=== PATIENT | female | born 1965 | race Caucasian/White ===

== ENCOUNTER 2023-05-28 07:00 | Outpatient (RCR) | payer OTHER, SELFPAY | END 2023-07-14 15:35 | disposition home or self-care (01) | LOC: PT 07:00 | PROVIDERS: Visit Provider Orthopaedic Surgery Adult Reconstructive Orthopaedic Surgery | DX: M70.61 Trochanteric bursitis, right hip (principal) | CPT/HCPCS: 97010; 97014; 97035; 97110; 97163; G0283 ==

== ENCOUNTER 2024-01-21 12:52 | Outpatient (CLI) | payer OTHER, SELFPAY ==
--- NOTE | 2024-01-21 12:53 | US_ITS ---
PROCEDURE INFORMATION: Exam: US Left Breast, Complete Exam date and time: 01/21/2024 1:50 PM Age: 58 years old Clinical indication: Palpable Left breast lump TECHNIQUE: Imaging protocol: Complete ultrasound of all four quadrants of the left breast and the retroareolar regions, including ultrasound of the axilla when performed. COMPARISON: MG MM DIG SCREENING MAMM BI W/CAD 01/21/2024 12:48 PM FINDINGS: ULTRASOUND: Breast ultrasound findings: Sonographic images of the left breast including the retroareolar region, all 4 quadrants and the axilla do not demonstrate any solid or cystic masses. Crisis were placed over normal fibrofatty tissue structures in the 12 o'clock axis 3 cm from the nipple, 2 o'clock axis 10 cm from the nipple, 3 o'clock axis 1 cm from the nipple where the patient reports a palpable abnormality. No architectural distortion or acoustical shadowing. No skin thickening or axillary adenopathy. Review of the patient's most recent mammogram dated 01/21/2024 did not demonstrate any suspicious findings IMPRESSION: No sonographic evidence of malignancy. Further evaluation of a palpable abnormality should be based on clinical grounds regardless of radiographic findings or lack thereof.Annual mammographic screening is recommended unless otherwise clinically indicated. ASSESSMENT: BI-RADS Category 1: Negative.
== END 2024-01-21 23:59 | disposition home or self-care (01) ==
LOC: RAD 12:53
PROVIDERS: PCP Nurse Practitioner Family; Visit Provider Obstetrics & Gynecology
DX: Z12.31 Encounter for screening mammogram for malignant neoplasm of breast (principal); N63.20 Unspecified lump in the left breast, unspecified quadrant
CPT/HCPCS: 76641; 77063; 77067

== ENCOUNTER 2024-02-18 14:11 | Outpatient (CLI) | payer OTHER, SELFPAY ==
--- NOTE | 2024-02-18 14:14 | MM_ITS ---
PROCEDURE INFORMATION: Exam: US Right Breast, Complete MG Right Diagnostic Breast Tomosynthesis Exam date and time: 02/18/2024 2:29 PM Age: 58 years old Clinical indication: Patient recalled on the basis of a screening mammogram for further evaluation; Right breast; mass TECHNIQUE: Imaging protocol: Complete ultrasound of all four quadrants of the right breast and the retroareolar regions, including ultrasound of the axilla when performed. Right Diagnostic tomosynthesis and 2D mammography including computer-aided detection (CAD) when performed. Unilateral or bilateral exam. COMPARISON: MG MM DIG MAMM DX UNILAT RT CAD 02/18/2024 2:02 PM FINDINGS: MAMMOGRAPHY: Breast composition: There are scattered areas of fibroglandular density (based on the most recent screening mammogram report). Breast mammogram findings: Digital diagnostic spot compression views of the right breast and 90 degree lateral view of the right breast demonstrate slight nodular tissue only in the MLO spot compression view measuring 0.6 cm in greatest dimension. ULTRASOUND: Breast ultrasound findings: Sonographic images of the right breast including the retroareolar region, all 4 quadrants and the axilla do not demonstrate any solid masses. 0.4 cm cyst in the 8 o'clock axis 3 cm from the nipple incidentally noted. No other solid or cystic masses are noted. No architectural distortion or acoustical shadowing. No skin thickening or axillary adenopathy. IMPRESSION: Slight persistent nonspecific nodular tissue in the central right breast only well seen in the MLO mammographic view. A six-month follow-up diagnostic right mammogram is recommended to assure stability of the pattern identified ASSESSMENT: BI-RADS Category 3: Probably benign.
== END 2024-02-18 23:59 | disposition home or self-care (01) ==
LOC: RAD 14:12
PROVIDERS: PCP Nurse Practitioner Family; Visit Provider Obstetrics & Gynecology
DX: R92.8 Other abnormal and inconclusive findings on diagnostic imaging of breast (principal); N63.10 Unspecified lump in the right breast, unspecified quadrant
CPT/HCPCS: 76641; 77061; 77065; G0279

== ENCOUNTER 2024-11-30 10:32 | Outpatient (CLI) | payer OTHER, SELFPAY ==
--- NOTE | 2024-11-30 10:33 | MM_ITS ---
PROCEDURE INFORMATION: Exam: MG Right Diagnostic Breast Tomosynthesis Exam date and time: 11/30/2024 10:39 AM Age: 59 years old Clinical indication: Short-term radiographic followup; Right breast; asymmetry TECHNIQUE: Imaging protocol: Right Diagnostic tomosynthesis and 2D mammography including computer-aided detection (CAD) when performed. Unilateral or bilateral exam. COMPARISON: 1. MG MM DIG MAMM DX UNILAT RT CAD 02/18/2024 2:02 PM 2. MG MM DIG SCREENING MAMM BI W/CAD 01/21/2024 12:48 PM FINDINGS: MAMMOGRAPHY: Breast composition: There are scattered areas of fibroglandular density. Breast mammogram findings: There is no stellate mass, architectural distortion or suspicious microcalcifications to suggest malignancy. No skin thickening or axillary adenopathy. Stable subcentimeter ovoid asymmetric density in the middle third of the right central breast only well seen in the MLO projection IMPRESSION: Stable asymmetry in the right central breast compared to prior mammogram dated 02/18/2024. A six-month follow-up diagnostic bilateral mammogram is recommended for continued close surveillance of the right-sided asymmetry as well as part of an annual screening schedule ASSESSMENT: BI-RADS Category 3: Probably benign.
== END 2024-11-30 23:59 | disposition home or self-care (01) ==
LOC: RAD 10:33
PROVIDERS: PCP Nurse Practitioner Family; Visit Provider Obstetrics & Gynecology
DX: N63.10 Unspecified lump in the right breast, unspecified quadrant (principal)
CPT/HCPCS: 77061; 77065; G0279

== ENCOUNTER 2025-07-05 15:15 | Outpatient (CLI) | payer BC, SELFPAY ==
--- OUTSIDE RECORDS SUMMARY | 2024-06-19 05:00 | XMS_ITS ---
Author Organization [facility] Address [address] [address] Care Team Providers Care Jewelry Sales Coordinator Name Role Phone Not Selected, Physician Unavailable Unavaila ble Migration, Provider Unavailable Unavailable REASON FOR VISIT EMR-[facility] Encounters Encounter Location Date Provider Diagnosis [facility] [address] [address] 06/19/2024 Provider Migration Plan Of Treatment No Information Progress Notes * OMERO CARHDOB:1965 (59 yo F)Acc No.[id number]:06/19/2024 Patient: ISAMAR ROBERTS :1965 A ge:58 Y S ex:Female Address:[address] [place] [address], [address] Subjective: * Chief Complaints: * E MR-Petar * * Date:
--- OUTSIDE RECORDS SUMMARY | 2024-06-20 05:00 | XMS_ITS ---
Author Organization [facility] Address [address] [address] Care Team Providers Care Government Operations Consultant Name Role Phone Not Selected, Physician Unavailable Unavaila ble Migration, Provider Unavailable Unavailable REASON FOR VISIT EMR-[facility] Medications Medication SIG (Take, Route, Frequency, Duration) Notes Start Date End Date Status DICLOFENAC SOD EC 75 MG TAB *Reorder from Medispan for eRx and Interaction Alerts* 09/06/2021 Active BOTOX 200 UNIT VIAL *Reorder fro m Medispan for eRx and Interaction Alerts* 09/06/2021 Active methylPREDNISolone 4 MG Tablet Therapy Pack Oral 09/06/2021 Active VITAMIN D2 1.25 MG(50,000 UNIT) *Reorder from Medispan for eRx and Interaction Alerts* 09/06/2021 Active SERTRALINE HCL 25 MG TABLET *Reorder from Medispan for eRx and Interaction Alerts* 09/06/2021 Active Encounters Encounter Location Date Provider Diagnosis [address] [address] 06/20/2024 Provider Migration Plan Of Treatment No Information Progress Notes * OMERO CARKATELYNNOB:1965 (59 yo F)Acc No.[id number]:06/20/2024 Patient: ISAMAR ROBERTS :1965 A ge:58 Y S ex:Female Address:[address] [place] [address] Subjective: * Chief Complaints: * E MR-Petar * Medications: T akingmethylPREDNISolone 4 MG Tablet Therapy Pack Oral BOTOX 200 UNIT VIAL , Notes to Pharmacist: *Reorder from Medispan for eRx and Interaction Alerts*DICLOFENAC SOD EC 75 MG TAB , Notes to Pharmacist: *Reorder from [facility] for eRx and Interaction Alerts*SERTRALINE HCL 25 MG TABLET , Notes to Pharmacist: *Reorder from [facility] for eRx and Interaction Alerts*VITAMIN D2 1.25 MG(50,000 UNIT) , Notes to Pharmacist: *Reorder from [facility] for eRx and Interaction Alerts*Taking methylPREDNISolone 4 MG Tablet Therapy Pack Oral Taking BOTOX 200 UNIT VIAL , Notes to Pharmacist: *Reorder from [facility] for eRx and Interaction Alerts*Taking DICLOFENAC SOD EC 75 MG TAB , Notes to Pharmacist: *Reorder from [facility] for eRx and Interaction Alerts*Taking SERTRALINE HCL 25 MG TABLET , Notes to Pharmacist: *Reorder from [facility] for eRx and Interaction Alerts*Taking VITAMIN D2 1.25 MG(50,000 UNIT) , Notes to Pharmacist: *Reorder from [facility] for eRx and Interaction Alerts* * * Date:
--- OUTSIDE RECORDS SUMMARY | 2024-11-27 17:30 | XMS_ITS ---
Author Organization [facility] Address [address] [place] [address] Care Team Providers Care Silver Chaser Name Role Phone None, Primary Care Provider Salma Ken Unavailable [phone] Migration, Provider Unavailable Unavailable [facility]AS[facility] VISIT [facility] Encounter Medications Medication SIG (Take, Route, Frequency, Duration) Notes Start Date End Date Status Thyroid UNKNOWN DIRECTED *Please review a nd pick correct strength-formulati on from Medispan options. If intended option is not shown, discontinue and re-order from Quick Search* Active Clindamycin Phosphate 1 % Solution 1 lenny applied topically 2 times a day; Duration: 30 day(s) 10/16/2021 Not-Taking/P MICHELL Paredes *Please review a nd pick correct strength-formulati on from [facility] options. If intended option is not shown, discontinue and re-order from Quick Search* Active Encounters Encounter Location Date Provider Diagnosis [facility] [address] [place] [address] 11/27/2024 Provider Migration Plan Of Treatment No Information Progress Notes * Nina WILHELM ADOB: 6 (59 yo F)Acc No.[id number]:11/27/2024 Patient: Nina Cardenas Provider: :1965 A ge:59 Y S ex:Female Date:11/27/2024 Address:[address], [facility] Pcp:Dr Torres Subjective: * Chief Complaints: * M ultum To Med[facility] Conversion Encounter * Medications: T akingThyroid UNKNOWN DIRECTED , Notes to Pharmacist: *Please review and pick correct strength-formulation from Medispan options. If intended option is not shown, discontinue and re-order from Quick Search*Paxil , Notes to Pharmacist: *Please review and pick correct strength-formulation from Medispan options. If intended option is not shown, discontinue and re-order from Quick Search*Taking Thyroid UNKNOWN DIRECTED , Notes to Pharmacist: *Please review and pick correct strength-formulation from Medispan options. If intended option is not shown, discontinue and re-order from Quick Search*Taking Paxil , Notes to Pharmacist: *Please review and pick correct strength-formulation from Medispan options. If intended option is not shown, discontinue and re-order from Quick Search*Not-Taking/PRNClindamycin Phosphate 1 % Solution 1 lenny applied topically 2 times a day Not-Taking/PRN Clindamycin Phosphate 1 % Solution 1 lenny applied topically 2 times a day * Electronic signature of Prov ider Migration on 07/05/2025 at 02:19 PM CDT Sign off status: Pending * Provider: Date: 0 11/27/2024 Generated for Elin wells/Rob/Ashli on: 02:19 PM CDT
--- NOTE | 2025-07-05 15:15 | MM_ITS ---
PROCEDURE INFORMATION: Exam: MG Bilateral Diagnostic Breast Tomosynthesis Exam date and time: 07/05/2025 3:29 PM Age: 59 years old Clinical indication: Short-term radiographic followup; left breast asymmetry TECHNIQUE: Imaging protocol: Bilateral Diagnostic tomosynthesis and 2D mammography including computer-aided detection (CAD) when performed. Unilateral or bilateral exam. COMPARISON: 1. MG MM DIG MAMM DX UNILAT RT CAD 11/30/2024 10:39 AM 2. MG MM DIG MAMM DX UNILAT RT CAD 02/18/2024 2:02 PM FINDINGS: MAMMOGRAPHY: Breast composition: There are scattered areas of fibroglandular density. Breast mammogram findings: There is no stellate mass, architectural distortion or suspicious microcalcifications to suggest malignancy. Stable subcentimeter nodular asymmetry in the middle third of the left central breast only seen in the MLO projection. No skin thickening or axillary adenopathy. IMPRESSION: Stable probably benign nodular asymmetry in the right central breast compared to prior mammogram dated 11/30/2024. A six-month follow-up diagnostic bilateral mammogram is recommended for continued close surveillance of the asymmetry as well as part of an annual screening schedule ASSESSMENT: BI-RADS Category 3: Probably benign.
--- OUTSIDE RECORDS SUMMARY | 2025-07-05 15:18 | XMS_ITS | Patient Health Record ---
Author Organization [facility] Address [address] [place] [address] Care Team Providers Care Basket Filler Name Role Phone EllisonLukasz doherty Primary Care Provider [phone] Adrian Joe [phone] Reason For Referral No Information Medications Medication SIG (Take, Route, Frequency, Duration) Notes Start Date End Date Status Relpax 40 mg 1 tab(s) orally once a day PRN Active FLUoxetine Hydrochloride 20 mg 1 cap(s) orally once a day; Duration: 30 days 10/06/2017 Active Mirena 52 mg 1 ea by intrauterine administration once Active [place] Thyroid 120 mg 1 tab(s) orally on a day, half tab on saturdays and sundays; Duration: 90 days 12/29/2017 Active *Keflex 500mg caps 500 mg 2 orally bid; Duration: 10 days 01/26/2018 Active Social History Tobacco Use: Social History Observation Description Date Details (start date - stop date) Never Smoker NA - NA Smoking: Question Answer Notes Are you a: nonsmoker Problems Problem Type SNOMED Code ICD Code Onset Dates Problem Status W/U Status Risk Notes Problem Vitamin D deficiency (66057275) Vitamin D deficiency (E55.9) Active confirmed Problem Disorder of cervical spine (987046343) Other specified dorsopathies, cervical region (M53.82) Active confirmed Problem Chronic migraine without aura, non-intractable (781504271634609) Chronic migraine without aura without status migrainosus, not intractable (G43.709) Active confirmed Problem Postoperative hypothyroidism (83716717) Postoperative hypothyroidism (E89.0) Active confirmed Problem Dysthymia (22033662) Dysthymia (F34.1) Active confirmed Plan Of Treatment Pending Test Test Name Order Date Pulse Oximetry 0d 10/23/2017 Lab-Urine Dipstick 25d (N) 09/01/2017 *AFD Rx - Keflex 15d 01/26/2018 BMI: >30 (Obese) 12/29/2017 BMI: >30 (Obese) 01/26/2018 BMI: >30 (Obese) 09/01/2017 BMI: >30 (Obese) 10/06/2017 BMI: >30 (Obese) 10/23/2017 Insurance Providers Payer Name Payer Address Payer Phone Subscriber Number Group Number Insured Name Patient Relationship to Insured Coverage Start Date Coverage End Date [id number] [facility] [place] [address] [place] [address] [id number] Nina Wilhelm Self - patient is the insured Medical (General) History Medical History History ICD Code Hyperthyroidism E05.90 Intractable menstrual migraine without s tatus migrainosus G43.839 depression Surgical History Surgery Date(Month/Year) Thyroidectomy 12/2015 Hospitalization History Reason Date(Month/Year) child x2 1988,2001
--- OUTSIDE RECORDS SUMMARY | 2025-07-05 15:19 | XMS_ITS | Patient Health Record ---
Author Organization [facility] Billing Info Address [address] [place] [address] [place] [address] Care Team Providers Care Methods Study Analyst Name Role Phone JULIANNE Sandhu Primary Care Provider Allergies Allergen (clinical drug ingredient) Drug/Non Drug Allergy documented on EMR Reaction Allergy Type Onset Date Status Nicotine nausea/vomiting Drug Allergy A ctive Reason For Referral No Information Medications Medication SIG (Take, Route, Frequency, Duration) Notes Start Date End Date Status Alprazolam 1 MG 1 tablet Orally once daily as needed for anxiety for [address] Prado Active Mirena 20 MCG/24HR as directed Intrauterine Active Levothyroxine Sodium 150 MCG 1 tablet Orally Once a day Dr. Hsieh 01/12/2014 Active Vitamin D 2000 UNIT Orally Active Vitamin B-12 1000 MCG 1 tablet Orally On ce a day Active Fluoxetine HCl 20 MG 1/2 tablet Orally O nce a day for 90 day(s) Dr. Prado 07/06/2013 Active Wellbutrin XL 150 MG 2 tablets Orally On ce in am with food for 90 day(s) Dr. Prado 11/26/2013 Active Adderall XR 20 MG 1 capsule in the morning Orally Once in am for 30 days 12/02/2016 Active Relpax 40 MG take 1 tablet by emily th p.o. once daily PRN migraine for 90 day(s) Neurology Active Botox 200 UNIT Injection Neurology Activ e Acyclovir 400 MG 1 tablet Orally tid for 5 days prn fever blister for [address] Prado 01/04/2015 Active Problems Problem Type SNOMED Code ICD Code Onset Dates Problem Status W/U Status Risk Notes Problem 70630931 Cervicalgia (M54.2) Active confirmed Problem 575122883 Hypothyroidism (244.9) Active confirmed Problem 737579532 Multinodular goi ter (241.1) Active confirmed Problem 974153002 Depression with anxiety (F41.8) Active confirmed Problem 20905276 Vitamin D deficiency (E55.9) Active confirmed Problem 824271836 Body mass index 33.0-33.9, adult (Z68.33) Active confirmed Problem 585095674 History of anemi a (Z86.2) Active confirmed Problem 68184571 Herpes simplex (B00.9) Active confirmed Problem 49049022 Cervical stenosi s of spinal canal (M48.02) Active confirmed Problem 22588474 ADHD (attention deficit hyperactivity disorder), combined type (F90.2) Active confirmed Problem 60931147 Migraine NOS/not intrcbl (G43.009) Active confirmed Plan Of Treatment No Information Insurance Providers Payer Name Payer Address Payer Phone Subscriber Number Group Number Insured Name Patient Relationship to Insured Coverage Start Date Coverage End Date [employer] [place] PPO Network P 1 [facility] [address] [place], [place] [id number] Nina Wilhelm Self - patient is the insured 6 5 Medications Administered Medication Instructions Date of Administration Dosage Notes Dexamethasone Na Phosphate 08/01/2015 1 mL Given as combo w ith Kenalog Triamcinolone Acetonide (Kenalog) 08/01/2015 1 mL Given as com eugenio with Dexamethasone Medical (General) History Medical History History ICD Code anxiety depression migraine headaches h/o multinodular goiter- fol lowed by Dr. Hsieh s/p total thyroidectomy in 2016 has a Mirena Cervicalgia diagnosed by ortho 08/2016 Cervical stenosis of spinal canal diagno sed by ortho 08/2016 Vitamin D deficiency Vitamin D deficiency Surgical History Surgery Date(Month/Year) total thyroidectomy Dr. Dobbins ve-multinodular goiter with follicular lesion left lobe 01-01-2016 knee arthroscopy
--- OUTSIDE RECORDS SUMMARY | 2025-07-05 15:19 | XMS_ITS | Patient Health Record ---
Author Organization [facility] Address [address] [place] [address] Support Name Relationship Address Phone Peter Wilhelm Emergency Contact [address] [place] [address] Nina Wilhelm Guarantor Unknown [phone] Allergies No Known Allergies Reason For Referral No Information Medications Medication SIG (Take, Route, Frequency, Duration) Notes Start Date End Date Status Sertraline HCl 25 MG TAKE ONE TABLET BY MOUTH DAILY; Duration: 90 Active Relpax 40 MG 1 tablet as needed o ne time Orally Once a day PRN Active cloNIDine HCl 0.1 MG 0.5 to 1 tablet at bedtime as needed for hot flashes Orally Once a day; Duration: 90 days 03/02/2021 Not-Takin g Saxenda 18 MG/3ML 0.6mg daily. increas e by 0.6mg weekly to max dose of 3mg per day Subcutaneous as directed; Duration: 90 days Not-Taking [place] 31G X 5 MM daily with saxend a subq daily; Duration: 90 days Active SHOW JUMPING INSTRUCTOR Thyroid 120 MG TAKE 1 TABLET BY DAILY FRIDAY-FRIDAY AND TAKE 1/2 TABLET BY MOUTH ON SUNDAYS; Duration: 90 Active Vitamin D3 1.25 MG (68862 UT) 1 capsule Orally once a week; Duration: 90 days 03/05/2022 Active Acyclovir 400 MG 1 tablet Orally Thre e times a day; Duration: 5 days PRN 11/06/2018 Active buPROPion HCl ER (XL) 150 MG TAKE ONE TABLET BY MOUTH EVERY MORNING; Duration: 90 Active Immunizations Vaccine Route Administration Date Status Comme nts ZZInfluenza Quadrivalent Flu IM Intramuscular 09/17/2021 Administered 3 and older Influenza IM Intramuscular 07/24/2018 Administ ered Social History Tobacco Use: Social History Observation Description Date Details (start date - stop date) Never Smoker NA - NA Smoking Question Answer Notes Are you a: never smoker Additional Findings: Tobacco Non-User Aggressive non-smoker Problems Problem Type SNOMED Code ICD Code Onset Dates Problem Status W/U Status Risk Notes Problem Obese class I (finding) (505433638736384) Obesity (BMI 30.0-34.9) (E66.9) Active confirmed Problem Vitamin D deficiency (87128892) Vitamin D deficiency (E55.9) Active confirmed Problem Obesity (863788788) Obesity (BMI 30-39.9) (E66.9) Active confirmed Problem Annual health maintenance examination (05808501) Annual physical exam (Z00.00) Active confirmed Problem Obese class II (645707537710735) BMI 35.0-35.9,adult (Z68.35) Active confirmed Problem Fatty liver (052012196) Fatty liver disease, nonalcoholic (K76.0) Active confirmed Problem Morbid obesity (disorder) (976281771) Morbid (severe) obesity due to excess calories (E66.01) Active confirmed Problem Major depression single episode, in partial remission (95262405) Major depressive disorder, single episode, in partial remission (F32.4) Active confirmed Problem Acquired hypothyroidism (258732224) Acquired hypothyroidism (E03.9) Active confirmed Problem Gastroesophageal reflux disease without esophagitis (881106963) Gastroesophageal reflux disease without esophagitis (K21.9) Active confirmed Problem Menopausal symptom (01954826) Hot flashes due to menopause (N95.1) Active confirmed Problem Mild major depression, single episode (28139982) Current mild episode of major depressive disorder without prior episode (F32.0) Active confirmed Problem History of thyroidectomy (471577707) History of thyroidectomy (Z90.09) Active confirmed Plan Of Treatment Pending Test Test Name Order Date Ultrasound : Neck 09/01/2020 Insurance Providers Payer Name Payer Address Payer Phone Subscriber Number Group Number Insured Name Patient Relationship to Insured Coverage Start Date Coverage End Date [facility] [address] [address] [place] [address] [id number] Nina Wilhelm Self - patient is the insured Medical (General) History Medical History History ICD Code Physical: 09/17/2021 Hyperthyroidism Intractable menstural migrane without st atus migrainosus Depression Mammogram 01/15/2022 ([facility]) Pap: 07/2021- normal ([facility]) Colonoscopy: 2019 squamous cell on the back- [facility] Cervical Radiculopathy~ Dr. Griffith (2020) Covid-19 Immunizations: Covid-19 (Pfizer 01/2021;); flu shot (09/17/2021); ECHO: 2021~ normal Fatty Liver (03/2022) Surgical History Surgery Date(Month/Year) total thyroidectomy 2013 punch biopsy-[facility] (squamous ce ll) 2017 Hospitalization History Reason Date(Month/Year) childbirth x2 1988,2001
--- OUTSIDE RECORDS SUMMARY | 2025-07-05 15:19 | XMS_ITS | Patient Health Record ---
Author Organization [facility] Address [address] [place] [address] Care Team Providers Care New Accounts Banking Representative Name Role Phone Not Selected, Physician Unavailable Unavaila ble Reason For Referral No Information Medications Medication [...] for eRx and Interaction Alerts* 09/06/2021 Active Problems Problem Type SNOMED Code ICD Code Onset Dates Problem Status W/U Status Risk Notes Problem Vitamin D deficiency (45959233) Vitamin D deficiency, unspecified (E55.9) 1 Active confirmed Problem Chronic migraine without aura, non-intractable (88075003564198 0) Chronic migraine without aura, not intractable, without status migrainosus (G43.709) 1 Active confirmed Plan Of Treatment No Information Insurance Providers Payer Name Payer Address Payer Phone Subscriber Number Group Number Insured Name Patient Relationship to Insured Coverage Start Date Coverage End Date [facility] [address] [address] [place], [place] [id number] JOSEPISAMAR MURRAY Self - patient is the insured 1
--- OUTSIDE RECORDS SUMMARY | 2025-07-05 15:20 | XMS_ITS | Patient Health Record ---
Author Organization [facility] [place] Address [address] [place] [address] Care Team Providers Care Match Up Worker Name Role Phone None, Primary Care Provider Salma Ken Unavailable [phone] Migration, Provider Unavailable Unavailable Allergies No Known Allergies Reason For Referral No Information Medications Medication SIG (Take, Route, Frequency, Duration) Notes Start Date End Date Status Thyroid UNKNOWN DIRECTED *Please review a nd pick correct strength-formulati on from Wikidot options. If intended option is not shown, discontinue and re-order from Quick Search* Active Clindamycin Phosphate 1 % Solution 1 lenny applied topically 2 times a day; Duration: 30 day(s) 10/16/2021 Not-Taking/P MICHELL Paredes *Please review a nd pick correct strength-formulati on from Wikidot options. If intended option is not shown, discontinue and re-order from Quick Search* Active Immunizations Vaccine Route Administration Date Status Comme nts Influenza Unknown 01/29/2017 Refused Pneumococcal Unknown 01/29/2017 Refused Social History Social History Additional Details Category Social Info Options Details Social History Sunscreen use Yes Alcohol: Do you typically martinez ve 6 or more alcohol containing drinks on one occasion? No Smoker: Are you a current ev shama day smoker, vape user, or any other form of nicotine? No Problems Problem Type SNOMED Code ICD Code Onset Dates Problem Status W/U Status Risk Notes Problem Actinic keratosis (048981) Actinic keratosis (L57.0) Active confirmed Problem Neoplasm of uncertain behavior of skin (37453700) Neoplasm of uncertain behavior of skin (D48.5) Active confirmed Problem Seborrheic keratosis (88032378) Other seborrheic keratosis (L82.1) Active confirmed Problem Inflamed seborrheic keratosis (244930771) Inflamed seborrheic keratosis (L82.0) Active confirmed Problem Hemangioma (131448674) Hemangioma unspecified site (D18.00) Active confirmed Problem Melanocytic nevus of trunk (disorder) (631081755) Melanocytic nevi of trunk (D22.5) Active confirmed Problem Freckle (305050337) Freckles (L81.2) Active confirmed Problem Folliculitis (81746639) Folliculitis (L73.9) Active confirmed Problem Lentigines (L81.4) Active confirmed Problem Multiple seborrheic keratoses (885876269) Seborrheic keratoses (L82.1) Active confirmed Problem Inflamed seborrheic keratosis (891016672) Seborrheic keratoses, inflamed (L82.0) Active confirmed Problem Family history of malignant melanoma (360419721) Family history of melanoma (Z80.8) Active confirmed Problem Scab (8654368737) Scab (R23.4) Active confirmed Problem History of neoplasm (960739541) History of dysplastic nevus (Z86.018) Active confirmed Problem Telangiectasis (734978137) Telangiectasis (I78.1) Active confirmed Encounters Encounter Location Date Provider Diagnosis [facility] - [address] [address] 11/27/2024 Provider Migration Plan Of Treatment No Information Insurance Providers Payer Name Payer Address Payer Phone Subscriber Number Group Number Insured Name Patient Relationship to Insured Coverage Start Date Coverage End Date [facility] [address] [address] [place] [address] [phone] [id number] Nina Wilhelm Self - patient is the insured Medical (General) History Medical History History ICD Code Allergies No Asthma No Arthritis No Diabetes No Cancer No HIV/Aids No Heart (Vascular) Disease No Heart Valve Replacement No CHF No High Blood Pressure No Seizures No Stroke No Hyperthyroidism No Hypothyroidism No Hepatitis C No 03/09/13 VERIFIED Skin Cancer: No Cancer, other: No Atypical Moles: No Surgery: No Arthritis: No Diabetes: No Coronary Artery Disease: No Heart Valve Replacement: No High Blood Pressure: No Seizures: No Stroke: No Hepatitis C: No HIV/Aids: No Joint/Hip Replacement: No Surgical History Surgery Date(Month/Year) Hospitalization History Reason Date(Month/Year)
== END 2025-07-05 23:59 | disposition home or self-care (01) ==
LOC: RAD 15:17
PROVIDERS: PCP Nurse Practitioner Family; Visit Provider Obstetrics & Gynecology
DX: N63.10 Unspecified lump in the right breast, unspecified quadrant (principal); R92.323 Mammographic fibroglandular density, bilateral breasts
CPT/HCPCS: 77062; 77066; G0279